=== PATIENT | female | born 1975 | race Caucasian/White ===

== ENCOUNTER 2017-08-23 21:11 | Emergency (ER) | payer OTHER ==
[~2017-08-23] VITALS: Ht 165.1 cm; Wt 81.8 kg
[2017-08-23] MEDS ORDERED: AMOX500T2 PO (21:32)
[2017-08-23] MEDS ORDERED: ACET1TAB12 PO (21:32)
[2017-08-23 23:01] LABS: BASOPHILS % (AUTO) 0.6 % (0.0-2.0); EOSINOPHILS % (AUTO) 2.2 % (1.0-6.0); HEMATOCRIT 37.7 % (36-46); LYMPHOCYTES # (AUTO) 1.2 K/uL (1.0-4.8); LYMPHOCYTES % (AUTO) 14.6 % (22.0-44.0); MEAN CORPUSCULAR HEMOGLOBIN 33.6 pg (26.0-34.0); MEAN CORPUSCULAR HGB CONC 34.6 G/dL (31.0-37.0); MEAN CORPUSCULAR VOLUME 97 fL (80-100); MONOCYTES # (AUTO) 0.7 K/uL (0.1-1.0); MONOCYTES % (AUTO) 8.7 % (2.0-9.0); NEUTROPHILS # (AUTO) 5.9 K/uL (1.8-7.7); NEUTROPHILS % (AUTO) 73.9 % (40.0-70.0); PLATELET COUNT (AUTO) 198 K/uL (150-450); RED BLOOD CELL COUNT(AUTO) 3.88 MIL/uL (4.00-5.20); RED CELL DISTRIBUTION WIDTH 13.2 % (11.5-14.5)
[2017-08-23 23:13] LABS: CALCIUM, TOTAL 8.9 mg/dL (8.8-10.5); CREATININE 1.43 mg/dL (0.60-1.30); POTASSIUM 3.3 mmol/L (3.5-5.1)
[2017-08-23 23:18] LABS: ALBUMIN 3.7 g/dL (3.4-5.0); BILIRUBIN,TOTAL 0.4 mg/dL (0.1-1.0); TOTAL PROTEIN, SERUM 7.5 g/dL (6.4-8.2)
[2017-08-23] MEDS: HYDROCODONE/ACETAMINOPHEN 5-325 MG TABLET PO ONE (23:25)
[2017-08-23] MEDS: CefTRIAXone SODIUM 1 GM/VIAL IM ONE (23:25)
[2017-08-23] MEDS: LIDOCAINE HCL/PF 1% 2 ML VIAL IM ONE (23:25)
[2017-08-23 23:48] LABS: APPEARANCE,URINE CLOUDY (CLEAR); GLUCOSE, URINE (UA) NEGATIVE (NEGATIVE); KETONES,URINE 15 mg/dL (NEGATIVE); LEUKOCYTE ESTERASE ,URINE NEGATIVE (NEGATIVE); NITRATE,URINE NEGATIVE (NEGATIVE); OCCULT BLOOD,URINE MODERATE (NEGATIVE); PROTEIN,URINE POS 1+ (NEGATIVE); UROBILINOGEN,URINE 0.2 mg/dL (<=1.0)
[2017-08-23] MEDS: POTASSIUM CHLORIDE 10% 40 MEQ/30 ML LIQUID UDCUP PO ONE (23:53)
[2017-08-23 23:57] LABS: BILIRUBIN,URINE PRELIM. POSITIVE (NEGATIVE)
[2017-08-23 23:59] VITALS: BP 134/82
[2017-08-24 00:16] LABS: BACTERIA,URINE Rare /HPF (None Seen); SQUAMOUS EPITHELIAL CELL,UR Moderate /LPF (None Seen)
[2017-08-24 00:17] LABS: OTHER CASTS, URINE EPITHELIAL CASTS 1+ /LPF (None Seen)
[2017-08-24 00:30] LABS: AMPHET/METH SCREEN,URINE POSITIVE (NEGATIVE); BARBITURATE SCREEN, URINE NEGATIVE (NEGATIVE); BENZODIAZEPINES SCREEN,URINE NEGATIVE (NEGATIVE); CANNABINOID SCREEN,URINE NEGATIVE (NEGATIVE); COCAINE SCREEN,URINE NEGATIVE (NEGATIVE); METHADONE SCREEN, URINE NEGATIVE (NEGATIVE); OPIATE SCREEN,URINE POSITIVE (NEGATIVE)
[2017-08-24 00:35] LABS: PHENCYCLIDINE SCREEN,URINE NEGATIVE (NEGATIVE)
== END 2017-08-24 | disposition home or self-care (01) ==
LOC: EMS 21:14 → EDBD 21:14 → EMS 08-24
DX: T19.2XXA Foreign body in vulva and vagina, initial encounter (principal); K04.7 Periapical abscess without sinus; I10 Essential (primary) hypertension; F17.210 Nicotine dependence, cigarettes, uncomplicated; Z79.899 Other long term (current) drug therapy
CPT/HCPCS: 36415; 80053; 80307; 81001; 84703; 85025; 87086; 96372; 99284; 99406; J0696; J3490